=== PATIENT | female | born 1995 | race American Indian/Alaskan Native ===

== ENCOUNTER 2017-09-21 11:56 | Emergency (ER) | payer SELFPAY ==
--- NOTE | 2017-09-21 12:33 | EDM.PDOC ---
ED HPI GENERAL MEDICAL PROBLEM - General Chief Complaint: ENT Problem Stated Complaint: TOOTH PAIN Time Seen by Provider: 09/21/17 12:24 Source of Information: Reports: Patient History Limitations: Reports: No Limitations - History of Present Illness INITIAL COMMENTS - FREE TEXT/NARRATIVE: 21-year-old female presents for evaluation and treatment of tooth pain. Patient reports she's had tooth pain to the right lower side for several weeks. The last 2 days it has progressively gotten worse. She reports pain with eating and intermittent pain to the right lower jaw with radiation towards her right ear. She reports a bad taste in her mouth. No fevers, facial swelling or headaches. She reports she did vomit this morning. She has been feeling chilled. Does not recall the last time that she saw a dentist. Reports she tried to contact a dentist this morning but do not have any money or insurance was therefore unable to be seen. Patient reports her and her recently relocated to [place] from [place]. Right Lower Oral/Mouth Pain Score (Numeric/FACES): 5 - Related Data Allergies Allergy/AdvReac Type Severity Reaction Status Date / Time No Known Allergies Allergy Verified 09/21/17 12:13 Home Meds: Home Meds Amoxicillin/Clavulanate K [Augmentin 875-125 MG] 1 tab PO BID #20 tablet [Rx] Naproxen 500 mg PO BID PRN #20 tablet 09/21/17 [Rx] Ondansetron [Zofran ODT] 4 mg PO Q6H PRN #10 tab.dis 09/21/17 [Rx] Past Medical History HEENT History: Reports: Impaired Vision Other HEENT History: wears glasses Social & Family History - Tobacco Use Smoking Status *Q: Current Every Day Smoker Years of Tobacco use: 3 Packs/Tins Daily: 0.2 - Recreational Drug Use Recreational Drug Use: No ED ROS ENT - Review of Systems Review Of Systems: See Below Constitutional: Reports: Chills. Denies: Fever HEENT: Reports: Dental Pain (right lower ), Other (reports a bad taste in her mouth and hallatosis; no facial swelling). Denies: Ear Pain, Sinus Problem GI/Abdominal: Reports: Nausea, Vomiting (x1 this morning) Neurological: Denies: Headache ED EXAM, ENT - Physical Exam Exam: See Below Exam Limited By: No Limitations General Appearance: Alert, WD/WN, No Apparent Distress Eye Exam: Bilateral Eye: Normal Inspection Ears: Normal External Exam, Normal Canal, Hearing Grossly Normal, Normal TMs Nose: Normal Inspection Mouth/Throat: Normal Inspection, Normal Gums, Dental Abcess (#31), Dental Pain ( #31), Dental Tenderness (#31), Dental Trauma (#1 is broken in half with half of the tooth absent) Neck: Normal Inspection. No: Lymphadenopathy (L), Lymphadenopathy (R) Respiratory/Chest: No Respiratory Distress, Lungs Clear, Normal Breath Sounds Cardiovascular: Normal Peripheral Pulses, Regular Rate, Rhythm, No Murmur Neurological: Alert, Oriented, Normal Cognition Psychiatric: Normal Affect, Normal Mood Skin: Warm, Dry, Normal Color Course - Vital Signs Last Recorded V/S: Last Vital Signs Temp 98.4 F 09/21/17 12:14 Pulse 70 09/21/17 12:14 Resp 13 09/21/17 12:14 BP 105/56 L 09/21/17 12:14 Pulse Ox 100 09/21/17 12:14 Departure - Departure Time of Disposition: 12:42 Disposition: Home, Self-Care 01 Condition: Fair Clinical Impression: Dental abscess, Pain, dental, Broken tooth - Discharge Information *PRESCRIPTION DRUG MONITORING PROGRAM REVIEWED*: No *COPY OF PRESCRIPTION DRUG MONITORING REPORT IN PATIENT THOMAS: No Prescriptions: Amoxicillin/Clavulanate K [Augmentin 875-125 MG] 1 tab PO BID #20 tablet Naproxen 500 mg PO BID PRN #20 tablet PRN Reason: Pain Ondansetron [Zofran ODT] 4 mg PO Q6H PRN #10 tab.dis PRN Reason: Nausea Instructions: Dental Abscess, [id number] Referrals: PCP,None [Primary Care Provider] - Forms: ED Department Discharge Additional Instructions: Follow-up with a dentist as soon as you are able to. A list has been provided for you. Consider bridging the gap dental in [place], call [phone] to discuss with them, they may be able to see you. Bridging the gap is a good option if cost is a concern. Naproxen 1 tab PO bid prn pain. May take OTC tylenol as needed for additional pain relief. May also try topical oragel or clove oil, available OTC for additional relief. Augmetnin 1 tab PO bid x 10 days. Take this medication with food. Augmetin can be hard on the stomach. Recommend yogurt or a probiotic to reduce side effects of nausea, vomiting and diarrhea. Take the zofran, 1 tab sublingual every 6-8 hours prn nausea. Please return to the ER should your symptoms change or worsen.
== END 2017-09-21 13:01 | disposition home or self-care (01) ==
LOC: JD.ED 11:56
DX: K04.7 Periapical abscess without sinus (principal); K03.81 Cracked tooth; F17.210 Nicotine dependence, cigarettes, uncomplicated
CPT/HCPCS: 99283

== ENCOUNTER 2017-10-17 15:08 | Emergency (ER) | payer SELFPAY ==
[2017-10-17] MEDS ORDERED: Sodium Chloride 0.9% 10 ML Syringe FLUSH PRN (15:33)
[2017-10-17] MEDS ORDERED: Sodium Chloride 0.9% 1,000 ML IV ONE (15:33)
[2017-10-17] MEDS ORDERED: HYDROmorphone 0.5 MG/0.5 ML SYRINGE IVPUSH ONE (15:34)
[2017-10-17] MEDS ORDERED: Ondansetron 4 MG/2 ML SDV IVPUSH ONE (15:34)
--- NOTE | 2017-10-17 15:42 | EDM.PDOC ---
ED HPI GENERAL MEDICAL PROBLEM - General Chief Complaint: DIVISION CHAIR Problem Stated Complaint: 8 WEEKS PREG AND FELL DOWN STAIRS Time Seen by Provider: 10/17/17 15:23 Source of Information: Reports: Patient History Limitations: Reports: No Limitations - History of Present Illness INITIAL COMMENTS - FREE TEXT/NARRATIVE: Patient is a 21-year-old female who presents to the ED complaining cramping to the lower abdomen and also left upper quadrant. Patient states at about 1:00 today she was walking down carpeted stairs lost her footing and fell. States she put her arm down to catch her self and then landed on her buttocks during this fall. She did not hit her side at all. Since the fall patient has been experiencing off-and-on pain to these locations. States things do not feel right. Pain is mild in intensity. She's had no vaginal bleeding or discharge. No hematuria. She is approximately 6 weeks . Last menstrual cycle was . Patient has not established medical care here locally. She denies any fever, chills, sob, chest pain, nausea/vomiting, dysuria, bloody stool, or any additional complaints. She denies hitting her head, loss conscious, neck or back pain. Left Abdominal Pain Score (Numeric/FACES): 4 - Related Data Allergies Allergy/AdvReac Type Severity Reaction Status Date / Time No Known Allergies Allergy Verified 09/21/17 12:13 Home Meds: Home Meds Amoxicillin/Clavulanate K [Augmentin 875-125 MG] 1 tab PO BID #20 tablet [Rx] Naproxen 500 mg PO BID PRN #20 tablet 09/21/17 [Rx] Ondansetron [Zofran ODT] 4 mg PO Q6H PRN #10 tab.dis 09/21/17 [Rx] Past Medical History HEENT History: Reports: Impaired Vision Other HEENT History: wears glasses Social & Family History - Tobacco Use Smoking Status *Q: Former Smoker Used Tobacco, but Quit: Yes Month/Year Tobacco Last Used: august - Recreational Drug Use Recreational Drug Use: No ED ROS GENERAL - Review of Systems Review Of Systems: ROS reveals no pertinent complaints other than HPI. ED EXAM - Physical Exam Exam: See Below Exam Limited By: No Limitations General Appearance: Alert, WD/WN, No Apparent Distress Ears: Hearing Grossly Normal Nose: Normal Inspection Throat/Mouth: Normal Voice, No Airway Compromise Neck: Normal Inspection, Supple, Full Range of Motion. No: Non-Tender Respiratory/Chest: No Respiratory Distress, Lungs Clear, Normal Breath Sounds, No Accessory Muscle Use. No: Chest Non-Tender (Slight tenderness noted to the left lower rib with palpation. No swelling, ecchymosis, bony abnormalities noted.) Cardiovascular: Normal Peripheral Pulses, Regular Rate, Rhythm, No Murmur GI/Abdominal Exam: Normal Bowel Sounds, Soft, No Organomegaly, No Distention, Tender (Slight tenderness noted along the suprapubic region and also left upper quadrant.) Back Exam: Normal Inspection. No: CVA Tenderness (L), CVA Tenderness (R) Extremities: Normal Inspection, Normal Range of Motion, Non-Tender Neurological: Alert, Oriented, CN II-XII Intact, Normal Cognition, Normal Gait, No Motor/Sensory Deficits Psychiatric: Normal Affect, Normal Mood Skin Exam: Warm, Dry, Intact, Normal Color Course - Vital Signs Last Recorded V/S: Last Vital Signs Temp 98.7 F 10/17/17 15:24 Pulse 87 10/17/17 15:24 Resp 16 10/17/17 15:24 BP 107/71 10/17/17 15:24 Pulse Ox 97 10/17/17 15:24 - Orders/Labs/Meds Orders: Active Orders 24 hr Category Date Time Status Peripheral IV Care [RC] . DIRECTED Care 10/17/17 15:34 Active Peripheral IV Insertion Adult [OM.PC] Routine Oth 10/17/17 15:33 Ordered Labs: Laboratory Tests 10/17/17 10/17/17 10/17/17 Range/Units 15:02 15:10 15:48 WBC 7.90 (3.98-10.04) K/mm3 RBC 4.63 (3.98-5.22) M/mm3 Hgb 14.0 (11.2-15.7) gm/L Hct 41.0 (34.1-44.9) % MCV 88.6 (79.4-94.8) fl MCH 30.2 (25.6-32.2) pg MCHC 34.1 (32.2-35.5) g/dl RDW Std Deviation 44.4 (36.4-46.3) fL Plt Count 298 (182-369) K/mm3 MPV 9.5 (9.4-12.3) fl Neutrophils % (Manual) 62 H (40-60) % Band Neutrophils % 0 (0-10) % Lymphocytes % (Manual) 27 (20-40) % Atypical Lymphs % 0 % Monocytes % (Manual) 7 (2-10) % Eosinophils % (Manual) 3 (0.7-5.8) % Basophils % (Manual) 1 (0.1-1.2) Platelet Estimate Adequate Plt Morphology Comment Normal RBC Morph Comment Normal PT (9.5-12.1) SECONDS INR APTT (24-31) SECONDS Sodium (136-145) mEq/L Potassium (3.5-5.1) mEq/L Chloride (98-107) mEq/L Carbon Dioxide (21-32) mEq/L Anion Gap (5-15) BUN (7-18) mg/dL Creatinine (0.55-1.02) mg/dL Est Cr Clr Drug Dosing mL/min Estimated GFR (MDRD) (>60) mL/min BUN/Creatinine Ratio (14-18) Glucose (74-106) mg/dL Calcium (8.5-10.1) mg/dL Total Bilirubin (0.2-1.0) mg/dL AST (15-37) U/L ALT (14-59) U/L Alkaline Phosphatase (46-116) U/L Total Protein (6.4-8.2) g/dl Albumin (3.4-5.0) g/dl Globulin gm/dL Albumin/Globulin Ratio (1-2) Lipase (73-393) U/L HCG, Quant mIU/mL Urine Color Yellow (Yellow) Urine Appearance Clear (Clear) Urine pH 7.0 (5.0-8.0) Ur Specific [place] 1.025 (1.005-1.030) Urine Protein Negative (Negative) Urine Glucose (UA) Negative (Negative) Urine Ketones 1+ H (Negative) Urine Occult Blood Negative (Negative) Urine Nitrite Negative (Negative) Urine Bilirubin Negative (Negative) Urine Urobilinogen 0.2 (0.2-1.0) Ur Leukocyte Esterase Negative (Negative) Urine RBC 0-5 (0-5) /hpf Urine WBC 0-5 (0-5) /hpf Ur Epithelial Cells 0-5 (0-5) /hpf Urine Bacteria Few (FEW) /hpf Urine Mucus Few (FEW) /hpf Urine Opiates Screen Negative (NEGATIVE) Ur Buprenorphine Scrn Negative (NEGATIVE) Ur Oxycodone Screen Negative (NEGATIVE) Urine Methadone Screen Negative (NEGATIVE) Ur Propoxyphene Screen Negative (NEGATIVE) Ur Barbiturates Screen Negative (NEGATIVE) Ur Tricyclics Screen Negative (NEGATIVE) Ur Phencyclidine Scrn Negative (NEGATIVE) Ur Amphetamine Screen Negative (NEGATIVE) U Methamphetamines Scrn Negative (NEGATIVE) U Benzodiazepines Scrn Negative (NEGATIVE) U Cocaine Metab Screen Negative (NEGATIVE) U Marijuana (THC) Screen Presumptive positive H (NEGATIVE) Blood Type 10/17/17 10/17/17 10/17/17 Range/Units 15:48 15:48 15:48 WBC (3.98-10.04) K/mm3 RBC (3.98-5.22) M/mm3 Hgb (11.2-15.7) gm/L Hct (34.1-44.9) % MCV (79.4-94.8) fl MCH (25.6-32.2) pg MCHC (32.2-35.5) g/dl RDW Std Deviation (36.4-46.3) fL Plt Count (182-369) K/mm3 MPV (9.4-12.3) fl Neutrophils % (Manual) (40-60) % Band Neutrophils % (0-10) % Lymphocytes % (Manual) (20-40) % Atypical Lymphs % % Monocytes % (Manual) (2-10) % Eosinophils % (Manual) (0.7-5.8) % Basophils % (Manual) (0.1-1.2) Platelet Estimate Plt Morphology Comment RBC Morph Comment PT 9.6 (9.5-12.1) SECONDS INR < 0.93 APTT 25 (24-31) SECONDS Sodium 136 (136-145) mEq/L Potassium 3.7 (3.5-5.1) mEq/L Chloride 101 (98-107) mEq/L Carbon Dioxide 25 (21-32) mEq/L Anion Gap 13.7 (5-15) BUN 9 (7-18) mg/dL Creatinine 0.7 (0.55-1.02) mg/dL Est Cr Clr Drug Dosing 118.01 mL/min Estimated GFR (MDRD) > 60 (>60) mL/min BUN/Creatinine Ratio 12.9 L (14-18) Glucose 90 (74-106) mg/dL Calcium 9.3 (8.5-10.1) mg/dL Total Bilirubin 0.3 (0.2-1.0) mg/dL AST 67 H (15-37) U/L ALT 60 H (14-59) U/L Alkaline Phosphatase 104 (46-116) U/L Total Protein 7.4 (6.4-8.2) g/dl Albumin 3.6 (3.4-5.0) g/dl Globulin 3.8 gm/dL Albumin/Globulin Ratio 1.0 (1-2) Lipase 174 (73-393) U/L HCG, Quant 914590.0 mIU/mL Urine Color (Yellow) Urine Appearance (Clear) Urine pH (5.0-8.0) Ur Specific [place] (1.005-1.030) Urine Protein (Negative) Urine Glucose (UA) (Negative) Urine Ketones (Negative) Urine Occult Blood (Negative) Urine Nitrite (Negative) Urine Bilirubin (Negative) Urine Urobilinogen (0.2-1.0) Ur Leukocyte Esterase (Negative) Urine RBC (0-5) /hpf Urine WBC (0-5) /hpf Ur Epithelial Cells (0-5) /hpf Urine Bacteria (FEW) /hpf Urine Mucus (FEW) /hpf Urine Opiates Screen (NEGATIVE) Ur Buprenorphine Scrn (NEGATIVE) Ur Oxycodone Screen (NEGATIVE) Urine Methadone Screen (NEGATIVE) Ur Propoxyphene Screen (NEGATIVE) Ur Barbiturates Screen (NEGATIVE) Ur Tricyclics Screen (NEGATIVE) Ur Phencyclidine Scrn (NEGATIVE) Ur Amphetamine Screen (NEGATIVE) U Methamphetamines Scrn (NEGATIVE) U Benzodiazepines Scrn (NEGATIVE) U Cocaine Metab Screen (NEGATIVE) U Marijuana (THC) Screen (NEGATIVE) Blood Type O POSITIVE Meds: Medications Discontinued Medications Generic Name Dose Route Start Last Admin Trade Name Freq PRN Reason Stop Dose Admin Hydromorphone HCl 0.25 mg 10/17/17 15:34 10/17/17 15:59 Dilaudid IVPUSH 10/17/17 15:35 0.25 mg ONETIME ONE Administration Sodium Chloride 1,000 mls @ 250 mls/hr 10/17/17 15:33 10/17/17 16:58 Normal Saline IV 10/17/17 19:32 250 mls/hr ONETIME ONE Administration Ondansetron HCl 4 mg 10/17/17 15:34 10/17/17 15:58 Zofran IVPUSH 10/17/17 15:35 4 mg ONETIME ONE Administration Sodium Chloride 10 ml 10/17/17 15:33 10/17/17 15:59 Saline Flush FLUSH 10 ml ASDIRECTED PRN Administration Keep Vein Open - Re-Assessments/Exams Free Text/Narrative Re-Assessment/Exam: IV established with normal saline, Dilaudid, and Zofran. Initial labs and studies will include: CBC, CMP, urine drug screen, hCG, lipase , UA, click studies, ABO/Rh type, abdomen limited ultrasound, and OB transvaginal ultrasound. Labs reviewed: CBC and chemistry panel were essentially normal. UA 1+ ketones otherwise negative findings. HCG 196,059. Type O+. Urine drug tox positive for marijuana. Ultrasound of the spleen impression: Normal ultrasound appearance of the spleen. Transvaginal ultrasound impression: Single intrauterine gestation. The dates as noted above. No complicating process is seen by ultrasound at this time. Discussed labs and ultrasound findings with the patient. She has no pain at this time. Symptoms have completely resolved. Advised patient should quit smoking marijuana. She states she hasn't smoked marijuana for quite some time since leaving [place]. Suspect patient has strained some abdominal muscles with the fall. In addition has slight tenderness noted to the left lower ribs as well. May have contused this area. Symptoms have completely resolved with pain medications. She is ready to go home. The patient remained hemodynamically stable while under my care in the E.D. I discussed the concerning symptoms for which to returnto the E.D. with the patient/family. The patient/family verbalized understanding. All questions were answered. Departure - Departure Time of Disposition: 17:40 Disposition: Home, Self-Care 01 Condition: Good, Undetermined Clinical Impression: Status post fall, First trimester , Intrauterine Abdominal pain Qualifiers: Abdominal location: left upper quadrant Qualified Code(s): R10.12 - Left upper quadrant pain - Discharge Information Instructions: Fall Prevention in the Home, [id number], Preventing Defects With Folic Acid, First Trimester of , [id number], How a Baby Grows During Referrals: Lowe,Femi Francisco, MD [Physician] - Dominguez Carey MD [Physician] - Phani Sellers MD [Physician] - Forms: ED Department Discharge, ED Return to Work/School Form Additional Instructions: Call and make an appointment to be evaluated by DIVISION CHAIR specialist here on out. Start taking vitamins. Monitor for any new or worsening symptoms. May utilize Tylenol 650 mg every 6 hours as needed for pain. Refrain from any activities that cause worsening pain. No smoking marijuana. Please return back to ED if you develop any new or worsening symptoms. Congratulations! - My Orders Last 24 Hours: My Active Orders 10/17/17 15:33 Peripheral IV Insertion Adult [OM.PC] Routine 10/17/17 15:34 Peripheral IV Care [RC] . DIRECTED - Assessment/Plan Last 24 Hours: My Active Orders 10/17/17 15:33 Peripheral IV Insertion Adult [OM.PC] Routine 10/17/17 15:34 Peripheral IV Care [RC] . DIRECTED
--- NOTE | 2017-10-17 17:21 | US ---
Splenic ultrasound: Multiple real-time images of the spleen were obtained. Spleen has a normal homogeneous ultrasound appearance. Splenic size is normal with length of 9.7 cm. Impression: 1. Normal ultrasound appearance of the spleen. Diagnostic code #1
--- NOTE | 2017-10-17 17:23 | US ---
First trimester obstetrical ultrasound: Multiple real-time images were obtained transvaginally. Comparison: No prior study for current . Dates: LMP: LMP given as 08/23/17, BRITTANY 05/30/18, gestational age 7 weeks 6 days Current ultrasound: BRITTANY 06/02/18, gestational age 7 weeks 3 days Single intrauterine gestation is seen. Amniotic fluid volume is normal. Embryo and yolk sac are seen. Maternal ovaries appear within normal limits. Measurements: [place]-rump length: 1.27 cm - 7 weeks 3 days Heart rate: 150 BPM Impression: 1. Single intrauterine gestation. Dates as noted above. 2. No complicating process is seen by ultrasound at this time. Diagnostic code #1
== END 2017-10-17 17:55 | disposition home or self-care (01) ==
LOC: JD.ED 15:08
DX: O99.89 Other specified diseases and conditions complicating pregnancy, childbirth and the puerperium (principal); R10.12 Left upper quadrant pain; Z87.891 Personal history of nicotine dependence; Z91.81 History of falling; Z3A.01 Less than 8 weeks gestation of pregnancy
CPT/HCPCS: 36415; 76705; 76817; 80053; 80306; 81001; 83690; 84702; 85007; 85027; 85610; 85730; 86900; 86901; 96361; 96374; 96375; 99284; J1170; J2405; J7040; J7050

== ENCOUNTER 2018-05-28 13:56 | Inpatient (IN) | payer MEDICAID ==
[2018-05-28] MEDS: Lactated Ringers 1,000 ML IV SCH ×4 (14:30→21:32)
[2018-05-28] MEDS ORDERED: Ampicillin 2 GM in Sodium Chloride 0.9% 100 ML IV ONE (14:31)
[2018-05-28] MEDS ORDERED: Nalbuphine 20 MG/ML 1 ML Syringe IVPUSH PRN (14:31)
[2018-05-28] MEDS ORDERED: Sodium Chloride 0.9% 10 ML Syringe FLUSH PRN (14:31)
[2018-05-28] MEDS ORDERED: Lidocaine 1% 50 ML MDV INJECT PRN (14:31)
[2018-05-28] MEDS ORDERED: Oxytocin/Lactated Ringers 10 UNIT/1,000 ML BAG IV SCH ×2 (14:45→21:45)
[2018-05-28] MEDS: Ampicillin 1 GM in Sodium Chloride 0.9% 100 ML IV SCH ×2 (18:58→23:00)
[2018-05-28] MEDS ORDERED: fentaNYL 100 MCG/2 ML SDV ONE (20:15)
[2018-05-28] MEDS ORDERED: diphenhydrAMINE 50 MG/ML SDV IVPUSH PRN (20:18)
[2018-05-28] MEDS ORDERED: ePHEDrine 50 MG/ML SDV IVPUSH PRN (20:18)
[2018-05-28] MEDS ORDERED: fentaNYL/Bupivacaine-NS 2 MCG/ML-0.125%/PF 100 ML Bag EPIDUR ONE (20:18)
[2018-05-28] MEDS ORDERED: fentaNYL 100 MCG/2 ML SDV EPIDUR PRN (20:18)
--- NOTE | 2018-05-28 20:55 | PCM.PREANE ---
Preanesthetic Assessment - Anesthesia/Transfusion/Family Hx Anesthesia History: No Prior Anesthesia Family History of Anesthesia Reaction: No Transfusion History: No Prior Transfusion(s) Intubation History: Unknown - Review of Systems General: No Symptoms Pulmonary: No Symptoms Cardiovascular: No Symptoms Gastrointestinal: No Symptoms Neurological: No Symptoms Other: Reports: None - Physical Assessment Pulse: 83 O2 Sat by Pulse Oximetry: 100 Respiratory Rate: 18 Vital Signs: Last Vital Signs Temp 36.9 C 05/28/18 14:32 Pulse 83 05/28/18 15:32 Resp 18 05/28/18 14:32 BP 130/79 05/28/18 14:32 Pulse Ox 100 05/28/18 14:32 Height: 1.63 m Weight: 85.275 kg ASA Class: 1E Airway Class: Mallampati = 1 Dentition: Reports: Normal Dentition ROM/Head Extension: Full Lungs: Clear to Auscultation, Normal Respiratory Effort Cardiovascular: Regular Rate, Regular Rhythm, No Murmurs - Lab Values: Laboratory Last Values WBC 10.06 K/mm3 (3.98-10.04) H 05/28/18 14:45 RBC 4.14 M/mm3 (3.98-5.22) 05/28/18 14:45 Hgb 11.0 gm/L (11.2-15.7) L D 05/28/18 14:45 Hct 33.7 % (34.1-44.9) L 05/28/18 14:45 MCV 81.4 fl (79.4-94.8) 05/28/18 14:45 MCH 26.6 pg (25.6-32.2) 05/28/18 14:45 MCHC 32.6 g/dl (32.2-35.5) 05/28/18 14:45 RDW Std Deviation 42.2 fL (36.4-46.3) 05/28/18 14:45 Plt Count 310 K/mm3 (182-369) 05/28/18 14:45 MPV 9.7 fl (9.4-12.3) 05/28/18 14:45 Neut % (Auto) 72.0 % (34.0-71.1) H 05/28/18 14:45 Lymph % (Auto) 20.0 % (19.3-51.7) 05/28/18 14:45 Nelson % (Auto) 6.7 % (4.7-12.5) 05/28/18 14:45 Eos % (Auto) 0.8 (0.7-5.8) 05/28/18 14:45 Baso % (Auto) 0.2 % (0.1-1.2) 05/28/18 14:45 Neut # (Auto) 7.25 K/mm3 (1.56-6.13) H 05/28/18 14:45 Lymph # (Auto) 2.01 K/mm3 (1.18-3.74) 05/28/18 14:45 Nelson # (Auto) 0.67 K/mm3 (0.24-0.36) H 05/28/18 14:45 Eos # (Auto) 0.08 K/mm3 (0.04-0.36) 05/28/18 14:45 Baso # (Auto) 0.02 K/mm3 (0.01-0.08) 05/28/18 14:45 Urine Opiates Screen Negative (BOWURH=199) 05/28/18 14:10 Ur Buprenorphine Scrn Negative (CUTOFF=10) 05/28/18 14:10 Ur Oxycodone Screen Negative (XYI1ZW=345) 05/28/18 14:10 Urine Methadone Screen Negative (GBTXDP=070) 05/28/18 14:10 Ur Propoxyphene Screen Negative (ZNQKKL=572) 05/28/18 14:10 Ur Barbiturates Screen Negative (EZVJII=257) 05/28/18 14:10 Ur Tricyclics Screen Negative (BNDMNB=396) 05/28/18 14:10 Ur Phencyclidine Scrn Negative (CUTOFF=25) 05/28/18 14:10 Ur Amphetamine Screen Negative (ZCXSMO=769) 05/28/18 14:10 U Methamphetamines Scrn Negative (PPMGZT=246) 05/28/18 14:10 U Benzodiazepines Scrn Negative (OHTMNG=797) 05/28/18 14:10 U Cocaine Metab Screen Negative (IMILKW=993) 05/28/18 14:10 U Marijuana (THC) Screen Negative (CUTOFF=50) 05/28/18 14:10 RPR Non-reactive (NONREACTIVE) 05/28/18 14:45 - Allergies Allergies/Adverse Reactions: Allergies Allergy/AdvReac Type Severity Reaction Status Date / Time copper Allergy Rash Verified 05/28/18 14:00 - Acknowledgements Pt an Appropriate Candidate for the Planned Anesthesia: Yes Alternatives and Risks of Anesthesia Discussed w Pt/Guardian: Yes Pt/Guardian Understands and Agrees with Anesthesia Plan: Yes PreAnesthesia Questionnaire - Past Health History Medical/Surgical History: Denies Medical/Surgical History HEENT History: Reports: Impaired Vision Other HEENT History: wears glasses 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 [No Known Home Meds] 05/28/18 [History] - CURRENT (IN HOUSE) MEDS Current Meds: Current Medications Diphenhydramine HCl (Benadryl) 25 mg IVPUSH Q6H PRN PRN Reason: Pruritis Ephedrine Sulfate (Ephedrine Sulfate) 5 mg IVPUSH ONETIME PRN PRN Reason: Hypotension Fentanyl (Sublimaze) 100 mcg EPIDUR Q3H PRN PRN Reason: Pain Ampicillin Sodium 1 gm/ Sodium (Chloride) 100 mls @ 200 mls/hr IV Q4H [facility] Last Admin: 05/28/18 18:58 Dose: 200 mls/hr Lactated Ringer's (Ringers, Lactated) 1,000 mls @ 100 mls/hr IV ASDIRECTED SHUN Last Admin: 05/28/18 20:07 Dose: 999 mls/hr Oxytocin/Lactated Ringer's (Pitocin In Lr 10 Units/1,000 Ml) 10 unit in 1,000 mls @ 500 mls/hr IV .CONTINUOUS [facility] Lidocaine HCl (Xylocaine 1%) 50 ml INJECT ONETIME PRN PRN Reason: Breakthrough Pain Nalbuphine HCl (Nubain) 10 mg IVPUSH Q2H PRN PRN Reason: pain Last Admin: 05/28/18 17:55 Dose: 10 mg Sodium Chloride (Saline Flush) 10 ml FLUSH ASDIRECTED PRN PRN Reason: Keep Vein Open Discontinued Medications Fentanyl (Sublimaze) Confirm Administered Dose 100 mcg .ROUTE .STK-MED ONE Stop: 05/28/18 20:16 Fentanyl/Bupivacaine HCl (Mitzvpkl-Auumv-Pl 2 Mcg/Ml-0.125%) 100 ml EPIDUR ONETIME ONE Stop: 05/28/18 20:19 Ampicillin Sodium 2 gm/ Sodium (Chloride) 100 mls @ 200 mls/hr IV ONETIME ONE Stop: 05/28/18 15:00 Last Admin: 05/28/18 15:13 Dose: 200 mls/hr
--- NOTE | 2018-05-28 20:56 | PCM.POSTAN ---
POST ANESTHESIA ASSESSMENT - MENTAL STATUS Mental Status: Alert - RESPIRATORY Respiratory Status: Respiratory Rate WNL, Airway Patent, O2 Saturation Stable - CARDIOVASCULAR CV Status: Pulse Rate WNL, Blood Pressure Stable - GASTROINTESTINAL GI Status: No Symptoms - POST OP HYDRATION Hydration Status: Adequate & Stable
[2018-05-28] MEDS ORDERED: Bupivacaine 0.25% 10 ML SDV ONE (22:00)
[2018-05-29] MEDS: Lactated Ringers 1,000 ML IV SCH (02:32)
[2018-05-29] MEDS: Ampicillin 1 GM in Sodium Chloride 0.9% 100 ML IV SCH ×3 (02:44→22:22)
[2018-05-29] MEDS ORDERED: ePHEDrine 50 MG/ML SDV IVPUSH PRN (02:47)
[2018-05-29] MEDS ORDERED: fentaNYL/Bupivacaine-NS 2 MCG/ML-0.125%/PF 100 ML Bag EPIDUR ONE (02:47)
[2018-05-29] MEDS ORDERED: diphenhydrAMINE 50 MG/ML SDV IVPUSH PRN (02:47)
--- NOTE | 2018-05-29 08:56 | PCM.PREANE ---
Preanesthetic Assessment - Anesthesia/Transfusion/Family Hx Anesthesia History: No Prior Anesthesia Family History of Anesthesia Reaction: No Transfusion History: No Prior Transfusion(s) Intubation History: Unknown - Review of Systems Other: Reports: None - Physical Assessment Pulse: 99 O2 Sat by Pulse Oximetry: 99 Respiratory Rate: 18 Blood Pressure: 116/66 Vital Signs: Last Vital Signs Temp 36.9 C 05/28/18 14:32 Pulse 99 05/29/18 08:00 Resp 18 05/28/18 20:55 BP 116/66 05/29/18 04:30 Pulse Ox 99 05/28/18 22:00 Height: 1.63 m Weight: 85.275 kg - Lab Values: Laboratory Last Values WBC 10.06 K/mm3 (3.98-10.04) H 05/28/18 14:45 RBC 4.14 M/mm3 (3.98-5.22) 05/28/18 14:45 Hgb 11.0 gm/L (11.2-15.7) L D 05/28/18 14:45 Hct 33.7 % (34.1-44.9) L 05/28/18 14:45 MCV 81.4 fl (79.4-94.8) 05/28/18 14:45 MCH 26.6 pg (25.6-32.2) 05/28/18 14:45 MCHC 32.6 g/dl (32.2-35.5) 05/28/18 14:45 RDW Std Deviation 42.2 fL (36.4-46.3) 05/28/18 14:45 Plt Count 310 K/mm3 (182-369) 05/28/18 14:45 MPV 9.7 fl (9.4-12.3) 05/28/18 14:45 Neut % (Auto) 72.0 % (34.0-71.1) H 05/28/18 14:45 Lymph % (Auto) 20.0 % (19.3-51.7) 05/28/18 14:45 [place] % (Auto) 6.7 % (4.7-12.5) 05/28/18 14:45 Eos % (Auto) 0.8 (0.7-5.8) 05/28/18 14:45 Baso % (Auto) 0.2 % (0.1-1.2) 05/28/18 14:45 Neut # (Auto) 7.25 K/mm3 (1.56-6.13) H 05/28/18 14:45 Lymph # (Auto) 2.01 K/mm3 (1.18-3.74) 05/28/18 14:45 [place] # (Auto) 0.67 K/mm3 (0.24-0.36) H 05/28/18 14:45 Eos # (Auto) 0.08 K/mm3 (0.04-0.36) 05/28/18 14:45 Baso # (Auto) 0.02 K/mm3 (0.01-0.08) 05/28/18 14:45 Urine Opiates Screen Negative (WCGMGS=617) 05/28/18 14:10 Ur Buprenorphine Scrn Negative (CUTOFF=10) 05/28/18 14:10 Ur Oxycodone Screen Negative (RMO7ZW=239) 05/28/18 14:10 Urine Methadone Screen Negative (WNSFXS=805) 05/28/18 14:10 Ur Propoxyphene Screen Negative (WJJMKJ=504) 05/28/18 14:10 Ur Barbiturates Screen Negative (BDOMFX=675) 05/28/18 14:10 Ur Tricyclics Screen Negative (MZXCFF=976) 05/28/18 14:10 Ur Phencyclidine Scrn Negative (CUTOFF=25) 05/28/18 14:10 Ur Amphetamine Screen Negative (KEVEVL=032) 05/28/18 14:10 U Methamphetamines Scrn Negative (CERTNE=449) 05/28/18 14:10 U Benzodiazepines Scrn Negative (SDRBHN=244) 05/28/18 14:10 U Cocaine Metab Screen Negative (XJZTEM=245) 05/28/18 14:10 U Marijuana (THC) Screen Negative (CUTOFF=50) 05/28/18 14:10 RPR Non-reactive (NONREACTIVE) 05/28/18 14:45 - Allergies Allergies/Adverse Reactions: Allergies Allergy/AdvReac Type Severity Reaction Status Date / Time copper Allergy Rash Verified 05/28/18 14:00 - Acknowledgements Anesthesia Type Planned: Epidural Pt an Appropriate Candidate for the Planned Anesthesia: Yes Alternatives and Risks of Anesthesia Discussed w Pt/Guardian: Yes Pt/Guardian Understands and Agrees with Anesthesia Plan: Yes PreAnesthesia Questionnaire - Past Health History Medical/Surgical History: Denies Medical/Surgical History HEENT History: Reports: Impaired Vision Other HEENT History: wears glasses [employer]ING [employer]ARD [employer]ER History: Reports: - Past Surgical History HEENT Surgical History: Reports: None - SUBSTANCE USE Smoking Status *Q: Former Smoker Tobacco Use Within Last Twelve Months: Cigarettes Recreational Drug Use History: Yes Recreational Drug Type: Reports: Marijuana/Hashish - HOME MEDS Home Medications: Home Meds . [No Known Home Meds] 05/28/18 [History] - CURRENT (IN HOUSE) MEDS Current Meds: Current Medications Diphenhydramine HCl (Benadryl) 25 mg IVPUSH Q6H PRN PRN Reason: Pruritis Ephedrine Sulfate (Ephedrine Sulfate) 5 mg IVPUSH ONETIME PRN PRN Reason: Hypotension Fentanyl (Sublimaze) 100 mcg EPIDUR Q3H PRN PRN Reason: Pain Ampicillin Sodium 1 gm/ Sodium (Chloride) 100 mls @ 200 mls/hr IV Q4H SHUN Last Admin: 05/29/18 06:59 Dose: 200 mls/hr Lactated Ringer's (Ringers, Lactated) 1,000 mls @ 100 mls/hr IV ASDIRECTED SHUN Last Infusion: 05/29/18 02:32 Dose: 500 mls/hr Oxytocin/Lactated Ringer's (Pitocin In Lr 10 Units/1,000 Ml) 10 unit in 1,000 mls @ 500 mls/hr IV .CONTINUOUS SHUN Oxytocin/Lactated Ringer's (Pitocin In Lr 10 Units/1,000 Ml) 10 unit in 1,000 mls @ 12 mls/hr IV TITRATE SHUN; Protocol Last Titration: 05/29/18 02:51 Dose: 0 munits/min, 0 mls/hr Lidocaine HCl (Xylocaine 1%) 50 ml INJECT ONETIME PRN PRN Reason: Breakthrough Pain Nalbuphine HCl (Nubain) 10 mg IVPUSH Q2H PRN PRN Reason: pain Last Admin: 05/28/18 17:55 Dose: 10 mg Sodium Chloride (Saline Flush) 10 ml FLUSH ASDIRECTED PRN PRN Reason: Keep Vein Open Discontinued Medications Diphenhydramine HCl (Benadryl) 25 mg IVPUSH Q6H PRN PRN Reason: Pruritis Ephedrine Sulfate (Ephedrine Sulfate) 5 mg IVPUSH ONETIME PRN PRN Reason: Hypotension Fentanyl (Sublimaze) Confirm Administered Dose 100 mcg .ROUTE .STK-MED ONE Stop: 05/28/18 20:16 Last Admin: 05/28/18 21:05 Dose: 100 mcg Fentanyl/Bupivacaine HCl (Dqemlbcs-Okalv-Vc 2 Mcg/Ml-0.125%) 100 ml EPIDUR ONETIME ONE Stop: 05/28/18 20:19 Last Admin: 05/28/18 21:04 Dose: 100 ml Fentanyl/Bupivacaine HCl (Lahieafx-Lqjlq-Uz 2 Mcg/Ml-0.125%) 100 ml EPIDUR ONETIME ONE Stop: 05/29/18 02:48 Last Admin: 05/29/18 03:25 Dose: 100 ml Ampicillin Sodium 2 gm/ Sodium (Chloride) 100 mls @ 200 mls/hr IV ONETIME ONE Stop: 05/28/18 15:00 Last Admin: 05/28/18 15:13 Dose: 200 mls/hr
--- NOTE | 2018-05-29 08:57 | PCM48HPAN ---
Post Anesthesia Note - EVALUATION WITHIN 48HRS OF ANESTHETIC Patient Participated in Evaluation: Yes Respiratory Function Stable: Yes Airway Patent: Yes Cardiovascular Function Stable: Yes Hydration Status Stable: Yes Pain Control Satisfactory: Yes Nausea and Vomiting Control Satisfactory: Yes Mental Status Recovered: Yes Pulse Rate: 99 Resp Rate: 18 Blood Pressure: 116/66
--- NOTE | 2018-05-29 10:22 | PCM.SN ---
- Free Text/Narrative Note: Stage I - Patient presented in active labor. GBS positive. Epidural for anesthesia. Augmented with pitocin and AROM. Progressed to complete with overall reassuring FHT. Stage II - of viable female, weight pending. APGARS 8/9 AT 1008. Head delivered in controlled manner over intact perineum. Body and shoulders atraumatically. Placed on maternal abdomen. Cord clamped and cut. Stage III - of intact placenta. 3vc. No laceration. EBL 500
[2018-05-29] MEDS ORDERED: Docusate Sodium 100 MG Cap PO PRN (12:06)
[2018-05-29] MEDS: Ibuprofen 600 MG Tab PO PRN ×2 (12:48→19:52)
[2018-05-30] MEDS: Ibuprofen 600 MG Tab PO PRN ×2 (07:06→13:58)
[2018-05-30] MEDS ORDERED: Measles, Mumps & Rubella Vaccine 0.5 ML SDV SUBCUT ONE (14:30)
== END 2018-05-30 15:40 | disposition home or self-care (01) | DRG 807 ==
LOC: INTOOBSV 13:56 → JD.OB 13:56 → OBSVTOIN 05-29 10:08 → JD.OB 05-29 10:36
PROVIDERS: ADMIT Obstetrics & Gynecology; ATTEND Obstetrics & Gynecology
PROC: 10E0XZZ Delivery of Products of Conception, External Approach (ICD-10-PCS; principal; 2018-05-29)
PROC: 10907ZC Drainage of Amniotic Fluid, Therapeutic from Products of Conception, Via Natural or Artificial Opening (ICD-10-PCS; 2018-05-29)
PROC: 3E0R3BZ Introduction of Anesthetic Agent into Spinal Canal, Percutaneous Approach (ICD-10-PCS; 2018-05-29)
PROC: 00HU33Z Insertion of Infusion Device into Spinal Canal, Percutaneous Approach (ICD-10-PCS; 2018-05-29)
DX: O99.824 Streptococcus B carrier state complicating childbirth (principal); Z37.0 Single live birth; Z3A.39 39 weeks gestation of pregnancy; Z23 Encounter for immunization
CPT/HCPCS: 36415; 51702; 59025; 59409; 80306; 85025; 86592; 90471; 90707; A9270-GY; J0290; J2300; J2590; J3010; J3490; J7030; J7120

== ENCOUNTER 2020-07-08 21:49 | Inpatient (IN) | payer MEDICAID ==
[2020-07-08] MEDS ORDERED: Calcium Carbonate 500 MG Tab.Chew PO PRN (22:20)
[2020-07-08] MEDS ORDERED: Sodium Chloride 0.9% 10 ML Syringe FLUSH PRN (22:20)
[2020-07-08] MEDS ORDERED: Ondansetron 4 MG/2 ML SDV IVPUSH PRN (22:20)
[2020-07-08] MEDS ORDERED: Nalbuphine 10 MG/1 ML Vial IVPUSH PRN (22:20)
[2020-07-08] MEDS ORDERED: Lidocaine 1% 50 ML MDV INJECT ONE (22:20)
[2020-07-08] MEDS ORDERED: Ampicillin 2 GM AdvVial IV ONE (22:25)
[2020-07-08] MEDS ORDERED: Sodium Chloride 0.9% 100 ML ONE (22:26)
[2020-07-08] MEDS ORDERED: Oxytocin/Lactated Ringers 10 UNIT/1,000 ML BAG IV SCH ×2 (22:30)
[2020-07-08] MEDS ORDERED: Ampicillin 2 GM in Sodium Chloride 0.9% 100 ML IV ONE (22:30)
[2020-07-08] MEDS: Lactated Ringers 1,000 ML IV SCH (22:40)
[2020-07-09] MEDS: Ampicillin 1 GM in Sodium Chloride 0.9% 100 ML IV SCH ×2 (02:40→06:36)
[2020-07-09] MEDS: Lactated Ringers 1,000 ML IV SCH (02:41)
[2020-07-09] MEDS ORDERED: fentaNYL 100 MCG/2 ML SDV ONE (03:03)
[2020-07-09] MEDS ORDERED: Ondansetron 4 MG/2 ML SDV IVPUSH PRN (03:12)
[2020-07-09] MEDS ORDERED: ePHEDrine 50 MG/ML SDV IVPUSH PRN (03:12)
[2020-07-09] MEDS ORDERED: fentaNYL 100 MCG/2 ML SDV EPIDUR PRN (03:12)
--- NOTE | 2020-07-09 03:15 | PCM.PREANE ---
Preanesthetic Assessment - Procedure Proposed Procedure: Epidural - Anesthesia/Transfusion/Family Hx Anesthesia History: Prior Anesthesia Without Reaction Family History of Anesthesia Reaction: No Transfusion History: No Prior Transfusion(s) Intubation History: Unknown - Review of Systems Pulmonary: No Symptoms (Smoker: with partying Marijuana: one year ETOH: occasionally) Cardiovascular: No Symptoms Gastrointestinal: No Symptoms (GERD) Neurological: No Symptoms, Tingling (All extremities on occasion) Other: Reports: None - Physical Assessment NPO Status Date: 07/08/20 NPO Status Time: 21:00 Vital Signs: Last Vital Signs Temp 35.9 C L 07/08/20 22:01 Pulse 98 07/08/20 22:01 Resp 16 07/08/20 22:01 BP 127/77 07/08/20 22:01 Pulse Ox 97 07/08/20 22:01 Height: 1.6 m Weight: 90.492 kg ASA Class: 3 Mental Status: Alert & Oriented x3 Airway Class: Mallampati = 2 Dentition: Reports: Normal Dentition, Caries Thyro-Mental Finger Breadths: 3 Mouth Opening Finger Breadths: 3 ROM/Head Extension: Full Lungs: Clear to Auscultation, Normal Respiratory Effort Cardiovascular: Regular Rate, Regular Rhythm, No Murmurs - Lab Values: Laboratory Last Values WBC 8.18 K/mm3 (3.98-10.04) 07/08/20 22:44 RBC 4.10 M/mm3 (3.98-5.22) 07/08/20 22:44 Hgb 9.2 gm/dl (11.2-15.7) L D 07/08/20 22:44 Hct 29.6 % (34.1-44.9) L 07/08/20 22:44 MCV 72.2 fl (79.4-94.8) L D 07/08/20 22:44 MCH 22.4 pg (25.6-32.2) L 07/08/20 22:44 MCHC 31.1 g/dl (32.2-35.5) L 07/08/20 22:44 RDW Std Deviation 41.0 fL (36.4-46.3) 07/08/20 22:44 Plt Count 376 K/mm3 (182-369) H 07/08/20 22:44 MPV 9.9 fl (9.4-12.3) 07/08/20 22:44 Neut % (Auto) 70.1 % (34.0-71.1) 07/08/20 22:44 Lymph % (Auto) 23.5 % (19.3-51.7) 07/08/20 22:44 [place] % (Auto) 4.9 % (4.7-12.5) 07/08/20 22:44 Eos % (Auto) 1.1 (0.7-5.8) 07/08/20 22:44 Baso % (Auto) 0.2 % (0.1-1.2) 07/08/20 22:44 Neut # (Auto) 5.73 K/mm3 (1.56-6.13) 07/08/20 22:44 Lymph # (Auto) 1.92 K/mm3 (1.18-3.74) 07/08/20 22:44 [place] # (Auto) 0.40 K/mm3 (0.24-0.36) H 07/08/20 22:44 Eos # (Auto) 0.09 K/mm3 (0.04-0.36) 07/08/20 22:44 Baso # (Auto) 0.02 K/mm3 (0.01-0.08) 07/08/20 22:44 Manual Slide Review Abnormal smear 07/08/20 22:44 Urine Color Yellow (Yellow) 07/08/20 23:14 Urine Appearance Clear (Clear) 07/08/20 23:14 Urine pH 7.0 (5.0-8.0) 07/08/20 23:14 Ur Specific [place] 1.020 (1.005-1.030) 07/08/20 23:14 Urine Protein Trace (Negative) H 07/08/20 23:14 Urine Glucose (UA) Negative (Negative) 07/08/20 23:14 Urine Ketones Negative (Negative) 07/08/20 23:14 Urine Occult Blood 2+ (Negative) H 07/08/20 23:14 Urine Nitrite Negative (Negative) 07/08/20 23:14 Urine Bilirubin Negative (Negative) 07/08/20 23:14 Urine Urobilinogen 0.2 (0.2-1.0) 07/08/20 23:14 Ur Leukocyte Esterase Negative (Negative) 07/08/20 23:14 Urine RBC 5-10 /hpf (0-5) H 07/08/20 23:14 Urine WBC 0-5 /hpf (0-5) 07/08/20 23:14 Ur Squamous Epith Cells 5-10 /hpf (0-5) H 07/08/20 23:14 Urine Bacteria Few /hpf (FEW) 07/08/20 23:14 Urine Mucus Rare /hpf (FEW) 07/08/20 23:14 Membrane Rupture Positive H 07/08/20 22:15 Urine Opiates Screen Negative (YAYCLD=811) 07/08/20 23:14 Ur Buprenorphine Scrn Negative (CUTOFF=10) 07/08/20 23:14 Ur Oxycodone Screen Negative (FTD2GI=059) 07/08/20 23:14 Urine Methadone Screen Negative (XWCHNK=738) 07/08/20 23:14 Ur Propoxyphene Screen Negative (OOYRPK=233) 07/08/20 23:14 Ur Barbiturates Screen Negative (PRWYDH=092) 07/08/20 23:14 Ur Tricyclics Screen Negative (OCYVXE=076) 07/08/20 23:14 Ur Phencyclidine Scrn Negative (CUTOFF=25) 07/08/20 23:14 Ur Amphetamine Screen Negative (MZLWSD=677) 07/08/20 23:14 U Methamphetamines Scrn Negative (UVETRT=793) 07/08/20 23:14 U Benzodiazepines Scrn Negative (XXCXPT=413) 07/08/20 23:14 U Cocaine Metab Screen Negative (LHEIWA=067) 07/08/20 23:14 U Marijuana (THC) Screen Negative (CUTOFF=50) 07/08/20 23:14 SARS-CoV-2 RNA (ARIA) Negative (NEGATIVE) 07/08/20 22:44 Above labs reviewed and noted and within acceptable ranges to proceed with epidural. - Allergies Allergies/Adverse Reactions: Allergies Allergy/AdvReac Type Severity Reaction Status Date / Time copper Allergy Rash Verified 07/08/20 22:48 - Anesthesia Plan Pre-Op Medication Ordered: None - Acknowledgements Anesthesia Type Planned: Epidural Pt an Appropriate Candidate for the Planned Anesthesia: Yes Alternatives and Risks of Anesthesia Discussed w Pt/Guardian: Yes Pt/Guardian Understands and Agrees with Anesthesia Plan: Yes PreAnesthesia Questionnaire - Past Health History Medical/Surgical History: Denies Medical/Surgical History HEENT History: Reports: Impaired Vision Other HEENT History: Pt states she has impaired vision for distance but does not have corrective lenses. Cardiovascular History: Reports: None Respiratory History: Reports: None Gastrointestinal History: Reports: None Genitourinary History: Reports: None [employer] History: Reports: Musculoskeletal History: Reports: None Psychiatric History: Reports: None Endocrine/Metabolic History: Reports: None Hematologic History: Reports: None Oncologic (Cancer) History: Reports: None Dermatologic History: Reports: None - Infectious Disease History Infectious Disease History: Reports: None - Past Surgical History Head Surgeries/Procedures: Reports: None HEENT Surgical History: Reports: None Neurological Surgical History: Reports: None - SUBSTANCE USE Tobacco Use Status *Q: Former Tobacco User Recreational Drug Use History: Yes Recreational Drug Type: Reports: Marijuana/Hashish, Other (see below) - HOME MEDS Home Medications: Home Meds No122/Iron/Folic Acid [ Multi Tablet] 1 each PO DAILY 07/08/20 [History] - CURRENT (IN HOUSE) MEDS Current Meds: Current Medications Calcium Carbonate/Glycine (Calcium Carbonate 500 Mg Tab.Chew) 1,000 mg PO Q2H PRN PRN Reason: Indigestion Ephedrine Sulfate (Ephedrine 50 Mg/Ml Sdv) 5 mg IVPUSH ASDIRECTED PRN PRN Reason: Hypotension Fentanyl (Fentanyl 100 Mcg/2 Ml Sdv) 100 mcg EPIDUR Q3H PRN PRN Reason: Pain Fentanyl/Bupivacaine HCl (Bupivacaine/Fentanyl/Ns 100 Ml Bag) 100 ml EPIDUR ASDIRECTED SHUN Lactated Ringer's (Ringers, Lactated) 1,000 mls @ 100 mls/hr IV ASDIRECTED SHUN Last Admin: 07/09/20 02:41 Dose: 999 mls/hr Documented by: Ampicillin Sodium 1 gm/ Sodium (Chloride) 100 mls @ 200 mls/hr IV Q4H SHUN Last Admin: 07/09/20 02:40 Dose: 200 mls/hr Documented by: Oxytocin/Lactated Ringer's (Pitocin In Lr 10 Units/1,000 Ml) 10 unit in 1,000 mls @ 12 mls/hr IV TITRATE SHUN; Protocol Oxytocin/Lactated Ringer's (Pitocin In Lr 10 Units/1,000 Ml) 10 unit in 1,000 mls @ 500 mls/hr IV .CONTINUOUS SHUN Miscellaneous Medication (Phenylephrine Hcl In 0.9% Nacl 1 Mg/10 Ml Syringe) 0.1 mg IVPUSH Q10M PRN PRN Reason: Hypotension Nalbuphine HCl (Nalbuphine 10 Mg/1 Ml Vial) 10 mg IVPUSH Q2H PRN PRN Reason: Pain Last Admin: 07/08/20 23:35 Dose: 10 mg Documented by: Ondansetron HCl (Ondansetron 4 Mg/2 Ml Sdv) 4 mg IVPUSH Q4H PRN PRN Reason: Nausea/Vomiting Ondansetron HCl (Ondansetron 4 Mg/2 Ml Sdv) 4 mg IVPUSH ONETIME PRN PRN Reason: Nausea/Vomiting Sodium Chloride (Sodium Chloride 0.9% 10 Ml Syringe) 10 ml FLUSH ASDIRECTED PRN PRN Reason: Keep Vein Open Discontinued Medications Ampicillin Sodium (Ampicillin 2 Gm Advvial) Confirm Administered Dose 2 gm IV .STK-MED ONE Stop: 07/08/20 22:26 Last Admin: 07/08/20 22:53 Dose: Not Given Documented by: Fentanyl (Fentanyl 100 Mcg/2 Ml Sdv) Confirm Administered Dose 100 mcg .ROUTE .STK-MED ONE Stop: 07/09/20 03:04 Ampicillin Sodium 2 gm/ Sodium (Chloride) 100 mls @ 200 mls/hr IV ONETIME ONE Stop: 07/08/20 22:59 Last Admin: 07/08/20 22:40 Dose: 200 mls/hr Documented by: Sodium Chloride (Normal Saline) Confirm Administered Dose 100 mls @ as directed .ROUTE .STK-MED ONE Stop: 07/08/20 22:27 Last Admin: 07/08/20 22:52 Dose: Not Given Documented by: Lidocaine HCl (Lidocaine 1% 50 Ml Mdv) 20 ml INJECT ONETIME ONE Stop: 07/08/20 22:21 Last Admin: 07/08/20 22:53 Dose: Not Given Documented by:
[2020-07-09] MEDS: Bupivacaine/fentaNYL/NS 100 ML Bag EPIDUR SCH ×2 (03:25→03:46)
--- NOTE | 2020-07-09 08:30 | PCM.LDHP ---
L&D History of Present Illness - General Date of Service: 07/09/20 Admit Problem/Dx: Patient Status Order with Admit Dx/Problem 07/08/20 22:01 Patient Status [ADT] Routine 07/08/20 22:21 Patient Status [ADT] Routine Admission Diagnosis/Problem Admission Diagnosis/Problem Active labor - History of Present Illness Introduction:: 24 year old at 39w1 here in labor. SROM clear fluid at 8pm. PNC with myself without complications. Pain Score: 9 - Related Data Allergies/Adverse Reactions: Allergies Allergy/AdvReac Type Severity Reaction Status Date / Time copper Allergy Rash Verified 07/08/20 22:48 Home Medications: Home Meds No122/Iron/Folic Acid [ Multi Tablet] 1 each PO DAILY 07/08/20 [History] Past Medical History - Past Health History Medical/Surgical History: Denies Medical/Surgical History HEENT History: Reports: Impaired Vision Other HEENT History: Pt states she has impaired vision for distance but does not have corrective lenses. 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: Musculoskeletal History: Reports: None Psychiatric History: Reports: None Endocrine/Metabolic History: Reports: None Hematologic History: Reports: None Oncologic (Cancer) History: Reports: None Dermatologic History: Reports: None - Infectious Disease History Infectious Disease History: Reports: None - Past Surgical History Head Surgeries/Procedures: Reports: None HEENT Surgical History: Reports: None Neurological Surgical History: Reports: None Social & Family History - Family History Family Medical History: No Pertinent Family History Endocrine/Metabolic: Reports: Diabetes, type II - Tobacco Use Tobacco Use Status *Q: Former Tobacco User Used Tobacco, but Quit: Yes Month/Year Tobacco Last Used: 10/2019 - Recreational Drug Use Recreational Drug Use: Yes Recreational Drug Type: Reports: Marijuana/Hashish, Other (see below) Other Recreational Drug Type: Pt has a history of marijuana use. States that she hasnt used during this . UDS obtained upon admission. H&P Review of Systems - Review of Systems: Review Of Systems: See Below General: Reports: No Symptoms HEENT: Reports: No Symptoms Pulmonary: Reports: No Symptoms Cardiovascular: Reports: No Symptoms Gastrointestinal: Reports: No Symptoms Genitourinary: Reports: No Symptoms Musculoskeletal: Reports: No Symptoms Skin: Reports: No Symptoms Psychiatric: Reports: No Symptoms Neurological: Reports: No Symptoms Hematologic/Lymphatic: Reports: No Symptoms Immunologic: Reports: No Symptoms L&D Exam - Exam Exam: See Below - Vital Signs Vital Signs: Last Vital Signs Temp 35.9 C L 07/08/20 22:01 Pulse 98 07/08/20 22:01 Resp 16 07/08/20 22:01 BP 127/77 07/08/20 22:01 Pulse Ox 97 07/08/20 22:01 Weight: 90.492 kg - OB Specific Contraction Intensity: Moderate to Strong Movement: Active Heart Tones: Present Heart Rate (FHR) Variability: Moderate (6-25 bmp) Presentation: Vertex - Peperson Score Epperson Score Cervix Position: Posterior Epperson Score Consistency: Soft Epperson Score Effacement: >80% Epperson Score Dilation: 3-4 cm Epperson Score Infant's Station: -2 Epperson Score Total: 8 - Exam General: Alert, Oriented HEENT: PERRLA, Conjunctiva Clear, EACs Clear, EOMI, Hearing Intact, Mucosa Moist & [place], Nares Patent, Normal Nasal Septum, Posterior Pharynx Clear, TMs Clear Neck: Supple, Trachea Midline Lungs: Clear to Auscultation, Normal Respiratory Effort Cardiovascular: Regular Rate, Regular Rhythm GI/Abdominal Exam: Normal Bowel Sounds, Soft, Non-Tender Genitourinary: Normal external exam Back Exam: Normal Inspection, Full Range of Motion Extremities: Normal Inspection, Normal Range of Motion, Non-Tender, No Pedal Edema, Normal Capillary Refill Skin: Warm, Dry, Intact Neurological: Cranial Nerves Intact, Reflexes Equal Bilateral Psychiatric: Alert, Normal Affect, Normal Mood - Patient Data Lab Results Last 24 hrs: Laboratory Results - last 24 hr 07/08/20 07/08/20 07/08/20 Range/Units 22:15 22:44 22:44 WBC 8.18 (3.98-10.04) K/mm3 RBC 4.10 (3.98-5.22) M/mm3 Hgb 9.2 L D (11.2-15.7) gm/dl Hct 29.6 L (34.1-44.9) % MCV 72.2 L D (79.4-94.8) fl MCH 22.4 L (25.6-32.2) pg MCHC 31.1 L (32.2-35.5) g/dl RDW Std Deviation 41.0 (36.4-46.3) fL Plt Count 376 H (182-369) K/mm3 MPV 9.9 (9.4-12.3) fl Neut % (Auto) 70.1 (34.0-71.1) % Lymph % (Auto) 23.5 (19.3-51.7) % [place] % (Auto) 4.9 (4.7-12.5) % Eos % (Auto) 1.1 (0.7-5.8) Baso % (Auto) 0.2 (0.1-1.2) % Neut # (Auto) 5.73 (1.56-6.13) K/mm3 Lymph # (Auto) 1.92 (1.18-3.74) K/mm3 [place] # (Auto) 0.40 H (0.24-0.36) K/mm3 Eos # (Auto) 0.09 (0.04-0.36) K/mm3 Baso # (Auto) 0.02 (0.01-0.08) K/mm3 Manual Slide Review Abnormal smear Urine Color (Yellow) Urine Appearance (Clear) Urine pH (5.0-8.0) Ur Specific [place] (1.005-1.030) Urine Protein (Negative) Urine Glucose (UA) (Negative) Urine Ketones (Negative) Urine Occult Blood (Negative) Urine Nitrite (Negative) Urine Bilirubin (Negative) Urine Urobilinogen (0.2-1.0) Ur Leukocyte Esterase (Negative) Urine RBC (0-5) /hpf Urine WBC (0-5) /hpf Ur Squamous Epith Cells (0-5) /hpf Urine Bacteria (FEW) /hpf Urine Mucus (FEW) /hpf Membrane Rupture Positive H Urine Opiates Screen (TKBJKN=593) Ur Buprenorphine Scrn (CUTOFF=10) Ur Oxycodone Screen (FHM3CI=967) Urine Methadone Screen (RNUXKR=832) Ur Propoxyphene Screen (GZYWHR=808) Ur Barbiturates Screen (VINAWD=479) Ur Tricyclics Screen (ETKKLX=825) Ur Phencyclidine Scrn (CUTOFF=25) Ur Amphetamine Screen (RXJBCD=044) U Methamphetamines Scrn (EOTIQY=716) U Benzodiazepines Scrn (FAIYGY=792) U Cocaine Metab Screen (ODBAWQ=045) U Marijuana (THC) Screen (CUTOFF=50) SARS-CoV-2 RNA (ARIA) Negative (NEGATIVE) 07/08/20 07/08/20 Range/Units 23:14 23:14 WBC (3.98-10.04) K/mm3 RBC (3.98-5.22) M/mm3 Hgb (11.2-15.7) gm/dl Hct (34.1-44.9) % MCV (79.4-94.8) fl MCH (25.6-32.2) pg MCHC (32.2-35.5) g/dl RDW Std Deviation (36.4-46.3) fL Plt Count (182-369) K/mm3 MPV (9.4-12.3) fl Neut % (Auto) (34.0-71.1) % Lymph % (Auto) (19.3-51.7) % [place] % (Auto) (4.7-12.5) % Eos % (Auto) (0.7-5.8) Baso % (Auto) (0.1-1.2) % Neut # (Auto) (1.56-6.13) K/mm3 Lymph # (Auto) (1.18-3.74) K/mm3 [place] # (Auto) (0.24-0.36) K/mm3 Eos # (Auto) (0.04-0.36) K/mm3 Baso # (Auto) (0.01-0.08) K/mm3 Manual Slide Review Urine Color Yellow (Yellow) Urine Appearance Clear (Clear) Urine pH 7.0 (5.0-8.0) Ur Specific [place] 1.020 (1.005-1.030) Urine Protein Trace H (Negative) Urine Glucose (UA) Negative (Negative) Urine Ketones Negative (Negative) Urine Occult Blood 2+ H (Negative) Urine Nitrite Negative (Negative) Urine Bilirubin Negative (Negative) Urine Urobilinogen 0.2 (0.2-1.0) Ur Leukocyte Esterase Negative (Negative) Urine RBC 5-10 H (0-5) /hpf Urine WBC 0-5 (0-5) /hpf Ur Squamous Epith Cells 5-10 H (0-5) /hpf Urine Bacteria Few (FEW) /hpf Urine Mucus Rare (FEW) /hpf Membrane Rupture Urine Opiates Screen Negative (PBNJHG=048) Ur Buprenorphine Scrn Negative (CUTOFF=10) Ur Oxycodone Screen Negative (LRO4TK=955) Urine Methadone Screen Negative (ILDOAI=688) Ur Propoxyphene Screen Negative (IJLDLC=225) Ur Barbiturates Screen Negative (QWECYB=502) Ur Tricyclics Screen Negative (KJFTOC=864) Ur Phencyclidine Scrn Negative (CUTOFF=25) Ur Amphetamine Screen Negative (MKNTMI=618) U Methamphetamines Scrn Negative (ZUYNJH=082) U Benzodiazepines Scrn Negative (EQFKOA=915) U Cocaine Metab Screen Negative (XHIBVQ=960) U Marijuana (THC) Screen Negative (CUTOFF=50) SARS-CoV-2 RNA (ARIA) (NEGATIVE) Result Diagrams: 07/08/20 22:44 Problem List Initiated/Reviewed/Updated: Yes Orders Last 24hrs: Active Orders 24 hr Category Date Time Status Patient Status [ADT] Routine ADT 07/08/20 22:21 Active Activity as Tolerated [RC] PFP Care 07/08/20 22:21 Active Communication Order [RC] ASDIRECTED Care 07/08/20 22:21 Active Notify Provider [RC] ASDIRECTED Care 07/09/20 03:12 Active Notify Provider [RC] PFP Care 07/08/20 22:21 Active Notify Provider [RC] PRN Care 07/08/20 22:21 Active Oxygen Therapy [RC] ASDIRECTED Care 07/09/20 03:12 Active Peripheral IV Care [RC] . DIRECTED Care 07/08/20 22:21 Active Pulse Oximetry [RC] ASDIRECTED Care 07/09/20 03:12 Active Pump Management, Intrathecal [RC] ASDIRECTED Care 07/08/20 22:21 Active Urinary Catheter Assessment [RC] ASDIRECTED Care 07/08/20 22:20 Active BLOOD BANK HOLD SPECIMEN [BBK] Routine Lab 07/08/20 22:44 Received RAPID PLASMA REAGIN,RPR [CHEM] Stat Lab 07/08/20 22:44 Received Ampicillin 1 gm Med 07/09/20 02:30 Active Sodium Chloride 0.9% [Normal Saline] 100 ml IV Q4H Bupivacaine/fentaNYL/NS [fentaNYL/Bupivacaine/NS 2 MCG- Med 07/09/20 03:15 Active 0.125% 100 ML] 100 ml EPIDUR ASDIRECTED Calcium Carbonate [Tums] Med 07/08/20 22:20 Active 1,000 mg PO Q2H PRN Lactated Ringers [Ringers, Lactated] 1,000 ml Med 07/08/20 22:30 Active IV ASDIRECTED Nalbuphine [Nubain] Med 07/08/20 22:20 Active 10 mg IVPUSH Q2H PRN Ondansetron [Zofran] Med 07/09/20 03:12 Active 4 mg IVPUSH ONETIME PRN Ondansetron [Zofran] Med 07/08/20 22:20 Active 4 mg IVPUSH Q4H PRN Oxytocin/Lactated Ringers [Pitocin in LR 10 Units/1,000 Med 07/08/20 22:30 Active ML] 10 unit in 1,000 ml IV .CONTINUOUS Oxytocin/Lactated Ringers [Pitocin in LR 10 Units/1,000 Med 07/08/20 22:30 Active ML] 10 unit in 1,000 ml IV TITRATE Phenylephrine HCl In 0.9% NaCl [Phenylephrine 1 MG/10 Med 07/09/20 03:12 Active ML-NS] 0.1 mg IVPUSH Q10M PRN Sodium Chloride 0.9% [Saline Flush] Med 07/08/20 22:20 Active 10 ml FLUSH ASDIRECTED PRN ePHEDrine [ePHEDrine sulfate] Med 07/09/20 03:12 Active 5 mg IVPUSH ASDIRECTED PRN fentaNYL [Sublimaze] Med 07/09/20 03:12 Active 100 mcg EPIDUR Q3H PRN Electronic Heart Tones Ext w TOCO [WOMSER] Oth 07/08/20 22:21 Ordered Routine Electronic Heart Tones Internal [WOMSER] Per Unit Oth 07/08/20 22:21 Ordered Routine Peripheral IV Insertion Adult [OM.PC] Routine Oth 07/08/20 22:21 Ordered Resuscitation Status Routine Resus Stat 07/08/20 22:01 Ordered Medication Orders Calcium Carbonate/Glycine (Calcium Carbonate 500 Mg Tab.Chew) 1,000 mg PO Q2H PRN PRN Reason: Indigestion Ephedrine Sulfate (Ephedrine 50 Mg/Ml Sdv) 5 mg IVPUSH ASDIRECTED PRN PRN Reason: Hypotension Fentanyl (Fentanyl 100 Mcg/2 Ml Sdv) 100 mcg EPIDUR Q3H PRN PRN Reason: Pain Last Admin: 07/09/20 03:25 Dose: 100 mcg Documented by: KHOI Fentanyl/Bupivacaine HCl (Bupivacaine/Fentanyl/Ns 100 Ml Bag) 100 ml EPIDUR ASDIRECTED [facility] Last Admin: 07/09/20 03:46 Dose: 100 ml Documented by: Admin: 07/09/20 03:25 Dose: 100 ml Documented by: KHOI Lactated Ringer's (Ringers, Lactated) 1,000 mls @ 100 mls/hr IV ASDIRECTED [facility] Last Admin: 07/09/20 02:41 Dose: 999 mls/hr Documented by: Infusion: 07/09/20 02:41 Dose: 100 mls/hr Documented by: Admin: 07/08/20 22:40 Dose: 100 mls/hr Documented by: KHOI Ampicillin Sodium 1 gm/ Sodium (Chloride) 100 mls @ 200 mls/hr IV Q4H SHUN Last Admin: 07/09/20 06:36 Dose: 200 mls/hr Documented by: Infusion: 07/09/20 03:10 Dose: 200 mls/hr Documented by: Admin: 07/09/20 02:40 Dose: 200 mls/hr Documented by: KHOI Oxytocin/Lactated Ringer's (Pitocin In Lr 10 Units/1,000 Ml) 10 unit in 1,000 mls @ 12 mls/hr IV TITRATE SHUN; Protocol Oxytocin/Lactated Ringer's (Pitocin In Lr 10 Units/1,000 Ml) 10 unit in 1,000 mls @ 500 mls/hr IV .CONTINUOUS [facility] Miscellaneous Medication (Phenylephrine Hcl In 0.9% Nacl 1 Mg/10 Ml Syringe) 0.1 mg IVPUSH Q10M PRN PRN Reason: Hypotension Nalbuphine HCl (Nalbuphine 10 Mg/1 Ml Vial) 10 mg IVPUSH Q2H PRN PRN Reason: Pain Last Admin: 07/08/20 23:35 Dose: 10 mg Documented by: KHOI Ondansetron HCl (Ondansetron 4 Mg/2 Ml Sdv) 4 mg IVPUSH Q4H PRN PRN Reason: Nausea/Vomiting Last Admin: 07/09/20 07:35 Dose: 4 mg Documented by: MANJULA Ondansetron HCl (Ondansetron 4 Mg/2 Ml Sdv) 4 mg IVPUSH ONETIME PRN PRN Reason: Nausea/Vomiting Sodium Chloride (Sodium Chloride 0.9% 10 Ml Syringe) 10 ml FLUSH ASDIRECTED PRN PRN Reason: Keep Vein Open Assessment/Plan Comment:: 24 year old here in labor. Progressing well. Anesthesia per patient request. Admission labs and covid test. Anticipate
--- NOTE | 2020-07-09 09:57 | PCM.SN.2 ---
- Free Text/Narrative Note: Stage I - Patient presented in active labor with SROM. Epidural for anesthesia. Progressed to complete with overall reassuring heart tones. Stage II - of viable female. Weight 4090g (9#). APGARS 8/9 at 0939. Head delivered in controlled manner over intact perineum. Body and shoulders atraumatically. Positive cry when placed on maternal abdomen. Cord clamped and cut. Pitocin initiated. Stage III - of intact placenta. 3vc. No laceration. EBL 250.
[2020-07-09] MEDS ORDERED: Benzocaine/Menthol 20%-0.5% Spray 56 GM Canister TOP PRN (10:21)
[2020-07-09] MEDS ORDERED: Witch Hazel Medicated Pads 40/Jar TOP PRN (10:21)
[2020-07-09] MEDS: Ibuprofen 600 MG Tab PO PRN ×3 (10:42→21:56)
[2020-07-09] MEDS: Acetaminophen 325 MG Tab PO PRN ×2 (13:07→18:08)
[2020-07-09] MEDS ORDERED: Bupivacaine 0.25% 10 ML SDV ONE (16:00)
[2020-07-09] MEDS ORDERED: diphenhydrAMINE 25 MG Cap PO PRN (21:18)
[2020-07-10] MEDS: Acetaminophen 325 MG Tab PO PRN ×2 (00:46→08:35)
--- NOTE | 2020-07-10 05:02 | PCM.DCSUM1 ---
Discharge Summary - Hospital Course Brief History: Admitted with SROM. See l&d note. Uncomplicated coruse. Expressed desire for discharge early PPD1 Diagnosis: Stroke: No - Discharge Data Discharge Date: 07/10/20 Discharge Disposition: Home, Self-Care 01 Condition: Good - Referral to Home Health Primary Care Physician: Sylwia Lock MD - Patient Summary/Data Hospital Course: Stage I - Patient presented in active labor with SROM. Epidural for anesthesia. Progressed to complete with overall reassuring heart tones. Stage II - of viable female. Weight 4090g (9#). APGARS 8/9 at 0939. Head delivered in controlled manner over intact perineum. Body and shoulders atraumatically. Positive cry when placed on maternal abdomen. Cord clamped and cut. Pitocin initiated. Stage III - of intact placenta. 3vc. No laceration. EBL 250. - Patient Instructions Diet: Usual Diet as Tolerated Activity: No Strenuous Activities Driving: May Drive Today Showering/Bathing: May Shower Notify Provider of: Fever, Increased Pain, Swelling and Redness, Drainage, Nausea and/or Vomiting - Discharge Plan *PRESCRIPTION DRUG MONITORING PROGRAM REVIEWED*: No *COPY OF PRESCRIPTION DRUG MONITORING REPORT IN PATIENT THOMAS: No Home Medications: Home Meds No122/Iron/Folic Acid [ Multi Tablet] 1 each PO DAILY 07/08/20 [History] Referrals: Sylwia Lock MD [Primary Care Provider] - (2 weeks) - Discharge Summary/Plan Comment DC Time >30 min.: No - General Info Date of Service: 07/10/20 Functional Status: Reports: Pain Controlled - Review of Systems General: Reports: No Symptoms HEENT: Reports: No Symptoms Pulmonary: Reports: No Symptoms Cardiovascular: Reports: No Symptoms Gastrointestinal: Reports: No Symptoms Genitourinary: Reports: No Symptoms Musculoskeletal: Reports: No Symptoms Skin: Reports: No Symptoms Neurological: Reports: No Symptoms Psychiatric: Reports: No Symptoms - Patient Data Vitals - Most Recent: Last Vital Signs Temp 36.6 C 07/10/20 03:30 Pulse 78 07/10/20 03:30 Resp 14 07/10/20 03:30 BP 98/63 07/10/20 03:30 Pulse Ox 93 L 07/10/20 03:30 Weight - Most Recent: 90.492 kg I&O - Last 24 hours: Intake & Output 07/09/20 07/09/20 07/10/20 14:59 22:59 06:59 Intake Total 1900 180 Output Total 38' Balance 1529 180 Lab Results - Last 24 hrs: Laboratory Results - last 24 hr 07/08/20 Range/Units 22:44 RPR Non-reactive (NONREACTIVE) Med Orders - Current: Current Medications Acetaminophen (Acetaminophen 325 Mg Tab) 650 mg PO Q4H PRN PRN Reason: Cramping Last Admin: 07/10/20 00:46 Dose: 650 mg Documented by: Benzocaine/Menthol (Benzocaine/Menthol 20%-0.5% [place] 56 Gm Canister) 0 gm TOP ASDIRECTED PRN PRN Reason: Perineal Comfort Measure Last Admin: 07/09/20 10:42 Dose: 1 can Documented by: Diphenhydramine HCl (Diphenhydramine 25 Mg Cap) 25 mg PO BEDTIME PRN PRN Reason: Sleep Last Admin: 07/09/20 21:56 Dose: 25 mg Documented by: Ibuprofen (Ibuprofen 600 Mg Tab) 600 mg PO Q6H PRN PRN Reason: Mild pain or fever Last Admin: 07/09/20 21:56 Dose: 600 mg Documented by: Toi Wolff (Toi Raineyel Medicated Pads 40/Jar) 1 pad TOP ASDIRECTED PRN PRN Reason: Perineal Comfort Measure Last Admin: 07/09/20 10:41 Dose: 1 tub Documented by: Discontinued Medications Ampicillin Sodium (Ampicillin 2 Gm Advvial) Confirm Administered Dose 2 gm IV .STK-MED ONE Stop: 07/08/20 22:26 Last Admin: 07/08/20 22:53 Dose: Not Given Documented by: Calcium Carbonate/Glycine (Calcium Carbonate 500 Mg Tab.Chew) 1,000 mg PO Q2H PRN PRN Reason: Indigestion Ephedrine Sulfate (Ephedrine 50 Mg/Ml Sdv) 5 mg IVPUSH ASDIRECTED PRN PRN Reason: Hypotension Fentanyl (Fentanyl 100 Mcg/2 Ml Sdv) Confirm Administered Dose 100 mcg .ROUTE .STK-MED ONE Stop: 07/09/20 03:04 Last Admin: 07/09/20 06:45 Dose: Not Given Documented by: Fentanyl (Fentanyl 100 Mcg/2 Ml Sdv) 100 mcg EPIDUR Q3H PRN PRN Reason: Pain Last Admin: 07/09/20 03:25 Dose: 100 mcg Documented by: Fentanyl/Bupivacaine HCl (Bupivacaine/Fentanyl/Ns 100 Ml Bag) 100 ml EPIDUR ASDIRECTED SHUN Last Admin: 07/09/20 03:46 Dose: 100 ml Documented by: Lactated Ringer's (Ringers, Lactated) 1,000 mls @ 100 mls/hr IV ASDIRECTED SHUN Last Admin: 07/09/20 02:41 Dose: 999 mls/hr Documented by: Ampicillin Sodium 2 gm/ Sodium (Chloride) 100 mls @ 200 mls/hr IV ONETIME ONE Stop: 07/08/20 22:59 Last Admin: 07/08/20 22:40 Dose: 200 mls/hr Documented by: Ampicillin Sodium 1 gm/ Sodium (Chloride) 100 mls @ 200 mls/hr IV Q4H SHUN Last Admin: 07/09/20 06:36 Dose: 200 mls/hr Documented by: Oxytocin/Lactated Ringer's (Pitocin In Lr 10 Units/1,000 Ml) 10 unit in 1,000 mls @ 12 mls/hr IV TITRATE SHUN; Protocol Oxytocin/Lactated Ringer's (Pitocin In Lr 10 Units/1,000 Ml) 10 unit in 1,000 mls @ 500 mls/hr IV .CONTINUOUS SHUN Last Admin: 07/09/20 09:40 Dose: 500 mls/hr Documented by: Sodium Chloride (Normal Saline) Confirm Administered Dose 100 mls @ as directed .ROUTE .STK-MED ONE Stop: 07/08/20 22:27 Last Admin: 07/08/20 22:52 Dose: Not Given Documented by: Lidocaine HCl (Lidocaine 1% 50 Ml Mdv) 20 ml INJECT ONETIME ONE Stop: 07/08/20 22:21 Last Admin: 07/08/20 22:53 Dose: Not Given Documented by: Miscellaneous Medication (Phenylephrine Hcl In 0.9% Nacl 1 Mg/10 Ml Syringe) 0.1 mg IVPUSH Q10M PRN PRN Reason: Hypotension Nalbuphine HCl (Nalbuphine 10 Mg/1 Ml Vial) 10 mg IVPUSH Q2H PRN PRN Reason: Pain Last Admin: 07/08/20 23:35 Dose: 10 mg Documented by: Ondansetron HCl (Ondansetron 4 Mg/2 Ml Sdv) 4 mg IVPUSH Q4H PRN PRN Reason: Nausea/Vomiting Last Admin: 07/09/20 07:35 Dose: 4 mg Documented by: Ondansetron HCl (Ondansetron 4 Mg/2 Ml Sdv) 4 mg IVPUSH ONETIME PRN PRN Reason: Nausea/Vomiting Sodium Chloride (Sodium Chloride 0.9% 10 Ml Syringe) 10 ml FLUSH ASDIRECTED PRN PRN Reason: Keep Vein Open - Exam General: Reports: Alert, Oriented HEENT: Reports: Pupils Equal, Pupils Reactive Neck: Reports: Supple Lungs: Reports: Normal Respiratory Effort Cardiovascular: Reports: Regular Rate, Regular Rhythm GI/Abdominal Exam: Normal Bowel Sounds, Soft, Non-Tender, No Organomegaly Rectal (Female) Exam: Normal Exam, Normal Rectal Tone Back Exam: Reports: Normal Inspection, Full Range of Motion Extremities: Normal Inspection, Normal Range of Motion, Non-Tender, No Pedal Edema, Normal Capillary Refill Skin: Reports: Warm, Dry, Intact Wound/Incisions: Reports: Healing Well Neurological: Reports: No New Focal Deficit Psy/Mental Status: Reports: Alert, Normal Affect, Normal Mood
[2020-07-10] MEDS: Ibuprofen 600 MG Tab PO PRN (06:19)
--- NOTE | 2020-07-10 11:11 | PCM48HPAN ---
Post Anesthesia Note - EVALUATION WITHIN 48HRS OF ANESTHETIC Vital Signs in Normal Range: Yes Patient Participated in Evaluation: Yes Respiratory Function Stable: Yes Airway Patent: Yes Cardiovascular Function Stable: Yes Hydration Status Stable: Yes Pain Control Satisfactory: Yes Nausea and Vomiting Control Satisfactory: Yes Mental Status Recovered: Yes Vital Signs: Last Vital Signs Temp 36.6 C 07/10/20 03:30 Pulse 78 07/10/20 03:30 Resp 14 07/10/20 03:30 BP 98/63 07/10/20 03:30 Pulse Ox 93 L 07/10/20 03:30
== END 2020-07-10 11:20 | disposition home or self-care (01) | DRG 807 ==
LOC: JD.OBCHECK 21:49 → JD.OB 21:51 → JD.OBCHECK 22:21 → OBSVTOIN 07-09 09:39 → JD.OB 07-09 09:40
PROVIDERS: ADMIT Obstetrics & Gynecology; ATTEND Obstetrics & Gynecology
PROC: 10E0XZZ Delivery of Products of Conception, External Approach (ICD-10-PCS; principal; 2020-07-09)
PROC: 3E0R3BZ Introduction of Anesthetic Agent into Spinal Canal, Percutaneous Approach (ICD-10-PCS; 2020-07-09)
DX: O80 Encounter for full-term uncomplicated delivery (principal); Z37.0 Single live birth; Z88.8 Allergy status to other drugs, medicaments and biological substances; Z87.891 Personal history of nicotine dependence; Z20.822 Contact with and (suspected) exposure to COVID-19; Z3A.39 39 weeks gestation of pregnancy
CPT/HCPCS: 01967; 36415; 51702; 59025; 59409; 80306; 81001; 84112; 85025; 86592; A9270-GY; J0290; J2300; J2405; J2590; J3010; J3490; J7120; U0002